=== PATIENT | female | born 1995 | race African-American/Black ===

== ENCOUNTER 2019-04-29 11:36 | Emergency (ER) | payer MEDICAID ==
[~2019-04-29] VITALS: Ht 154.9 cm; Wt 59.4 kg
[2019-04-29] MEDS ORDERED: VENTOLIN HFA18 GM INH (11:50)
[2019-04-29] MEDS ORDERED: Metoclopramide 10mg/2ml Inj IVP ONE (12:00)
[2019-04-29] MEDS ORDERED: DiphenhydrAMINE 50mg/ml Inj IVP ONE (12:00)
[2019-04-29 13:04] LABS: ANION GAP 8 mmol/L (5-15); BLOOD UREA NITROGEN 6 mg/dL (7-18); CALCIUM 9.2 MG/DL (8.5-10.1); CARBON DIOXIDE 25 MMOL/L (21-32); CHLORIDE 103 MMOL/L (98-107); CREATININE 0.6 MG/DL (0.55-1.30); POTASSIUM 3.7 MMOL/L (3.5-5.1); SODIUM 136 MMOL/L (136-145)
[2019-04-29 13:07] LABS: BASOPHILS % (AUTO) 0.7 % (0.0-2.0); HEMATOCRIT 38.4 % (37.0-47.0); HEMOGLOBIN 13.1 G/DL (12.0-16.0); MEAN CORPUSCULAR VOLUME 83 FL (80-99); MONOCYTES % (AUTO) 7.4 % (1.0-10.0); NEUTROPHILS % (AUTO) 59.8 % (45.0-75.0); PLATELET COUNT 181 K/UL (150-450); RED CELL DISTRIBUTION WIDTH 13.4 % (11.6-14.8); WHITE BLOOD COUNT 4.4 K/UL (4.8-10.8)
[2019-04-29 13:09] LABS: ALANINE AMINOTRANSFERASE 14 U/L (12-78); ALBUMIN 3.6 G/DL (3.4-5.0); ALBUMIN/GLOBULIN RATIO 0.9 (1.0-2.7); ALKALINE PHOSPHATASE 42 U/L (46-116); ASPARTATE AMINO TRANSFERASE 12 U/L (15-37); BILIRUBIN,TOTAL 0.3 MG/DL (0.2-1.0)
[2019-04-29 13:16] LABS: APPEARANCE,URINE CLEAR; BILIRUBIN, URINE NEGATIVE (NEGATIVE); COLOR,URINE BROWN; GLUCOSE, URINE (UA) NEGATIVE (NEGATIVE); KETONES,URINE 1+ (NEGATIVE); LEUKOCYTE ESTERASE ,URINE 1+ (NEGATIVE); NITRITE,URINE NEGATIVE (NEGATIVE); PH,URINE 7 (4.5-8.0); PROTEIN,URINE NEGATIVE (NEGATIVE); UROBILINOGEN,URINE 8 MG/DL (0.0-1.0)
--- NOTE | 2019-04-29 15:10 | Emergency Room Report ---
History of Present Illness General Chief Complaint: Complications Source: Patient Present Illness HPI Patient believes she is . She's been vomiting intermittently and has more morning nausea. She been vomiting with some blood-tinged emesis but no coffee grounds. There is no melena. She has some epigastric pain. She did not take any medication for this at this time. The pain is epigastric, not radiating and rated 6/10, fairly constant. She was advised not to take Pepcid or other medication because of the possibility of . Denies dysuria, hematuria, fever or chills. She feels a bit weak, but denies dizziness or headache. Last period in February, not sure of date. She did not have this with prior pregnancies - boy and girl. H/O asthma - no wheezing or dyspnea. Allergies: Coded Allergies: No Known Allergies (Unverified , 04/29/19) Patient History Past Medical History: see triage record Social History: Denies: smoking - former - stopped few weeks ago, alcohol use, drug use Social History Narrative has children Now: Yes Reviewed Nursing Documentation: PMH: Agreed; PSxH: Agreed Nursing Documentation-PMH Past Medical History: No Stated History Hx Asthma: Yes Review of Systems All Other Systems: negative except mentioned in HPI Physical Exam Vital Signs Date Time Temp Pulse Resp B/P (MAP) Pulse Ox O2 Delivery O2 Flow Rate FiO2 04/29/19 11:46 97.5 97 20 113/78 (90) 97 Room Air Sp02 EP Interpretation: reviewed, normal General Appearance: well appearing, no apparent distress, GCS 15 Head: normocephalic Eyes: bilateral eye normal inspection, bilateral eye PERRL ENT: moist mucus membranes Neck: supple Respiratory: lungs clear, normal breath sounds Cardiovascular #1: regular rate, rhythm Cardiovascular #2: 2+ radial (R) Gastrointestinal: normal inspection, normal bowel sounds, no mass, non- distended, no guarding, no rebound, tenderness - epigastric, but minimal Genitourinary: no CVA tenderness Musculoskeletal: back normal, gait/station normal, normal range of motion Neurologic: alert, oriented x3, grossly normal Psychiatric: mood/affect normal Skin: normal inspection, warm/dry Medical Decision Making Diagnostic Impression: Primary Impression: Hyperemesis gravidarum Additional Impression: Early stage of ER Course Patient with h/o early with persistent vomiting and epigastric pain. DDx: hyperemesis gravidarum, gastritis, pancreatitis, gall bladder disease amongst others. Evaluation with labs. Treatment with IV hydration, Reglan, Benadryl and Pepcid. Repeat exams indicated. Labs with normal WBC, H/H. CMP normal. UA clear with + ketones. Quant 132, 809 B+ Improved with treatment. Tolerating oral intake well. Pain in stomach resolved. Discussed treatment plan. Patient stable for outpatient observation and treatment. Laboratory Tests Test 04/29/19 12:16 White Blood Count 4.4 K/UL (4.8-10.8) L Red Blood Count 4.60 M/UL (4.20-5.40) Hemoglobin 13.1 G/DL (12.0-16.0) Hematocrit 38.4 % (37.0-47.0) Mean Corpuscular Volume 83 FL (80-99) Mean Corpuscular Hemoglobin 28.4 PG (27.0-31.0) Mean Corpuscular Hemoglobin Concent 34.0 G/DL (32.0-36.0) Red Cell Distribution Width 13.4 % (11.6-14.8) Platelet Count 181 K/UL (150-450) Mean Platelet Volume 7.5 FL (6.5-10.1) Neutrophils (%) (Auto) 59.8 % (45.0-75.0) Lymphocytes (%) (Auto) 31.0 % (20.0-45.0) Monocytes (%) (Auto) 7.4 % (1.0-10.0) Eosinophils (%) (Auto) 1.0 % (0.0-3.0) Basophils (%) (Auto) 0.7 % (0.0-2.0) Prothrombin Time 10.4 SEC (9.30-11.50) Prothrombin Time INR 1.0 (0.9-1.1) PTT 25 SEC (23-33) Urine Color Brown Urine Appearance Clear Urine pH 7 (4.5-8.0) Urine Specific [place] 1.015 (1.005-1.035) Urine Protein Negative (NEGATIVE) Urine Glucose (UA) Negative (NEGATIVE) Urine Ketones 1+ (NEGATIVE) H Urine Blood Negative (NEGATIVE) Urine Nitrite Negative (NEGATIVE) Urine Bilirubin Negative (NEGATIVE) Urine Urobilinogen 8 MG/DL (0.0-1.0) H Urine Leukocyte Esterase 1+ (NEGATIVE) H Urine RBC 0 /HPF (0 - 2) Urine WBC 0-2 /HPF (0 - 2) Urine Squamous Epithelial Cells Few /LPF (NONE/OCC) Urine Bacteria Few /HPF (NONE) Sodium Level 136 MMOL/L (136-145) Potassium Level 3.7 MMOL/L (3.5-5.1) Chloride Level 103 MMOL/L (98-107) Carbon Dioxide Level 25 MMOL/L (21-32) Anion Gap 8 mmol/L (5-15) Blood Urea Nitrogen 6 mg/dL (7-18) L Creatinine 0.6 MG/DL (0.55-1.30) Estimate Glomerular Filtration Rate > 60 mL/min (>60) Glucose Level 81 MG/DL (74-106) Calcium Level 9.2 MG/DL (8.5-10.1) Total Bilirubin 0.3 MG/DL (0.2-1.0) Aspartate Amino Transferase (AST) 12 U/L (15-37) L Alanine Aminotransferase (ALT) 14 U/L (12-78) Alkaline Phosphatase 42 U/L (46-116) L Total Protein 7.7 G/DL (6.4-8.2) Albumin 3.6 G/DL (3.4-5.0) Globulin 4.1 g/dL Albumin/Globulin Ratio 0.9 (1.0-2.7) L Lipase 78 U/L (73-393) Human Chorionic Gonadotropin, Quant 269428 mIU/mL (1-6) H Last Vital Signs Date Time Temp Pulse Resp B/P (MAP) Pulse Ox O2 Delivery O2 Flow Rate FiO2 04/29/19 15:27 97.8 89 16 121/80 99 Room Air Status: improved Disposition: HOME, SELF-CARE Condition: Improved Scripts Famotidine (PEPCID AC) 20 Mg Tablet 20 MG PO DAILY, #20 TAB Prov: Frankie Jenkins MD 04/29/19 Acetaminophen (Tylenol) 325 Mg Tablet 650 MG ORAL Q6H PRN for Prn Pain/Headache/Temp > 101, #30 TAB 0 Refills Prov: Frankie Jenkins MD 04/29/19 Vit #76/Iron,Carb/Fa (PRENATABS RX TABLET) 1 Each Tablet 1 EACH PO DAILY, #30 TAB Prov: Frankie Jenkins MD 04/29/19 Promethazine Hcl (PROMETHEGAN) 25 Mg Supp.rect 25 MG RC Q8HR PRN for Nausea & Vomiting, #6 SUPP Prov: Frankie Jenkins MD 04/29/19 Promethazine Hcl* (PHENERGAN*) 25 Mg Tablet 25 MG ORAL Q8HR PRN for Nausea & Vomiting, #12 TAB 0 Refills Prov: Frankie Jenkins MD 04/29/19 Referrals: TG PANIAGUA,REFERRING (PCP) Frankie Jenkins MD Apr 29, 2019 15:10
[2019-04-29] MEDS ORDERED: PRENATABS RX T1 EACH PO (15:17)
[2019-04-29] MEDS ORDERED: TYLENOL325 MG ORAL (15:17)
[2019-04-29] MEDS ORDERED: PEPCID AC20 M2 PO (15:17)
[2019-04-29] MEDS ORDERED: PROMETHEGAN25 MG RC (15:17)
[2019-04-29] MEDS ORDERED: PHENERGAN25 M1 ORAL (15:17)
[2019-04-29 15:27] VITALS: BP 121/80
== END 2019-04-29 15:27 | disposition home or self-care (01) ==
LOC: EMR 13:45
DX: O21.0 Mild hyperemesis gravidarum (principal); Z3A.00 Weeks of gestation of pregnancy not specified; O99.519 Diseases of the respiratory system complicating pregnancy, unspecified trimester; J45.909 Unspecified asthma, uncomplicated
CPT/HCPCS: 36415; 80053; 81003; 83690; 84702; 85025; 85610; 85730; 86850; 86900; 86901; 96361; 96374; 96375; 99284; J1200; J2765; S0028

== ENCOUNTER 2019-07-18 23:18 | Emergency (ER) | payer MEDICAID ==
[~2019-07-18] VITALS: Ht 154.9 cm; Wt 59.0 kg
[~2019-07-18 23:18] MED LIST: PEPCID AC20 M2 PO; PHENERGAN25 M1 ORAL; PRENATABS RX T1 EACH PO; PROMETHEGAN25 MG RC; TYLENOL325 MG ORAL; VENTOLIN HFA18 GM INH
--- NOTE | 2019-07-18 23:20 | NUR ---
ED Nurse Note: Walk-in patient presents with complaints of Abdominal pain x 2days. Patient is 19 weeks and notes blood in her urine. Patient is accompanied by her friend at bedside. Urine collected prior to rooming and sent down to lab for evaluation. Patient resting comfortably, will continue to monitor.
[2019-07-18 23:30] VITALS: BP 91/58
--- NOTE | 2019-07-18 23:45 | Emergency Room Report ---
History of Present Illness General Chief Complaint: Abdominal Pain Source: Patient Present Illness HPI This is a 24-year-old female who is 3 para 2, approximately 19 weeks . She presents with chief complaint of suprapubic pain, cramping and spotting. Onset for last 2 days. Increased urination. Noted some spotting with wiping. No fever chills. No back pain. No vomiting or diarrhea. Pain is 7 out of 10 and crampy in nature. Worse with urination. Allergies: Coded Allergies: No Known Allergies (Unverified , 04/29/19) Patient History Past Medical History: see triage record, old chart reviewed Past Surgical History: other Pertinent Family History: none Social History: Denies: smoking Now: Yes - due date 12/08/18 : 3 Para: 2 Immunizations: other Reviewed Nursing Documentation: PMH: Agreed; PSxH: Agreed Nursing Documentation-[facility] Past Medical History: No History, Except For Hx Asthma: Yes Review of Systems Eye: Denies: eye pain, blurred vision ENT: Denies: ear pain, nose congestion, throat swelling Respiratory: Denies: cough, shortness of breath Cardiovascular: Denies: chest pain, palpitations Gastrointestinal: Denies: abdominal pain, diarrhea, nausea, vomiting Genitourinary: Reports: vag bleed/dc Musculoskeletal: Denies: back pain, joint pain Skin: Denies: rash Neurological: Denies: headache, numbness Endocrine: Denies: increased thirst, increased urine Hematologic/Lymphatic: Denies: easy bruising All Other Systems: negative except mentioned in HPI Physical Exam Vital Signs Date Time Temp Pulse Resp B/P (MAP) Pulse Ox O2 Delivery O2 Flow Rate FiO2 07/18/19 23:20 98.2 94 18 91/58 (69) 96 Room Air Sp02 EP Interpretation: reviewed, normal General Appearance: well appearing, no apparent distress, alert Head: normocephalic, atraumatic Eyes: bilateral eye PERRL, bilateral eye EOMI ENT: hearing grossly normal, normal pharynx Neck: full range of motion, supple, no meningismus Respiratory: chest non-tender, lungs clear, normal breath sounds Cardiovascular #1: regular rate, rhythm, no murmur Gastrointestinal: normal bowel sounds, non tender, no mass, no organomegaly, no bruit, non-distended, other Musculoskeletal: back normal, gait/station normal, normal range of motion Psychiatric: mood/affect normal Medical Decision Making Diagnostic Impression: Primary Impression: UTI (urinary tract infection) Qualified Codes: N30.00 - Acute cystitis without hematuria ER Course Patient presents with pelvic pain and second trimester. She has a mild urinary tract infection. I did a bedside ultrasound which showed a live IUP with good movement and heartbeat. Will discharge home. Last Vital Signs Date Time Temp Pulse Resp B/P (MAP) Pulse Ox O2 Delivery O2 Flow Rate FiO2 07/18/19 23:30 98.2 94 18 91/58 96 Room Air Status: improved Disposition: HOME, SELF-CARE Condition: Stable Scripts Nitrofurantoin Monohyd/M-Cryst (Nitrofurantoin [place]-Mcr 100 mg) 100 Mg Capsule 100 MG ORAL Q12H, #14 CAP Prov: Ricardo Fishman MD 07/19/19 Additional Instructions: Follow-up with your doctor within a week. Return if symptoms worsen. Ricardo Fishman MD Jul 18, 2019 23:45
[2019-07-18 23:51] LABS: APPEARANCE,URINE CLEAR; BILIRUBIN, URINE NEGATIVE (NEGATIVE); GLUCOSE, URINE (UA) NEGATIVE (NEGATIVE); KETONES,URINE 4+ (NEGATIVE); LEUKOCYTE ESTERASE ,URINE 1+ (NEGATIVE); NITRITE,URINE NEGATIVE (NEGATIVE); PH,URINE 6 (4.5-8.0); PROTEIN,URINE NEGATIVE (NEGATIVE); UROBILINOGEN,URINE 4 MG/DL (0.0-1.0)
[2019-07-18 23:52] LABS: COLOR,URINE YELLOW
[2019-07-19] MEDS ORDERED: MACROBID100 MG ORAL (00:09)
[2019-07-19 00:17] VITALS: BP 91/58
--- NOTE | 2019-07-19 00:17 | NUR ---
ED Nurse Note: Patient cleared for discharge by ERMD, patient verbalized understanding of discharge instructions, ID band removed. Patient A&Ox4, ambulatory with steady gait. Patient departed with all belongings accompanied by her friend.
== END 2019-07-19 00:20 | disposition home or self-care (01) ==
LOC: EMR 23:52
DX: O23.12 Infections of bladder in pregnancy, second trimester (principal); Z3A.19 19 weeks gestation of pregnancy; O99.512 Diseases of the respiratory system complicating pregnancy, second trimester; J45.909 Unspecified asthma, uncomplicated
CPT/HCPCS: 81003; 99282